=== PATIENT | male | born 1935 | race African-American/Black ===

== ENCOUNTER 2020-01-09 09:21 | Inpatient (IN) | payer MEDICARE, MEDICAID ==
[~2020-01-09] VITALS: Ht 182.9 cm; Wt 89.0 kg
[2020-01-09] MEDS ORDERED: LEVOFLOXACIN 500MG PREMIX 100 ML IV ONE (09:45)
[2020-01-09] MEDS ORDERED: ACETAMINOPHEN 650MG SUPP PR ONE (09:45)
[2020-01-09] MEDS ORDERED: SODIUM CHLORIDE 0.9% 500 ML IV ONE (09:46)
[2020-01-09 10:01] LABS: BASOPHILS % 0.4 % (0.0-2.0); HEMATOCRIT. 45.7 % (42.0-52.0); HEMOGLOBIN. 14.7 g/dL (14.0-18.0); LYMPHOCYTES % 13.6 % (20.0-50.0); MEAN CORPUSCULAR HEMOGLOBIN 27.5 pg (28.0-32.0); MEAN CORPUSCULAR VOLUME 85.9 fL (80.0-94.0); MEAN PLATELET VOLUME 9.1 fl (7.4-10.4); MONOCYTES % 11.8 % (2.0-8.0); NEUTROPHILS % 74.2 % (40.0-76.0); PLATELET 107 x1000/uL (130-400); RED BLOOD CELL COUNT 5.32 mill/uL (4.7-6.1)
[2020-01-09 10:08] LABS: CLARITY URINE CLEAR (CLEAR); COLOR URINE YELLOW (YELLOW); KETONES URINE NEGATIVE (NEGATIVE); LEUKOCYTE ESTERASE URINE NEGATIVE (NEGATIVE); NITRITE URINE NEGATIVE (NEGATIVE); OCCULT BLOOD URINE NEGATIVE (NEGATIVE); PROTEIN URINE 2+ (NEGATIVE)
[2020-01-09 10:10] LABS: CHLORIDE 107 mEq/L (98-107)
[2020-01-09] MEDS ORDERED: LEVETIRACETAM 500MG PREMIX 100 ML IV ONE (10:15)
[2020-01-09 10:17] LABS: D-DIMER 0.53 mg/L FEU (<0.50); INR 3.5; PROTHROMBIN TIME 36.6 sec (9.6-11.0)
[2020-01-09 10:18] LABS: CREATINE KINASE 146 IU/L (39-308)
[2020-01-09] MEDS ORDERED: ACETAMINOPHEN 325MG TABLET PO PRN (11:30)
[2020-01-09] MEDS ORDERED: LORAZEPAM 2MG/ML CPJ IV PRN (11:30)
[2020-01-09] MEDS ORDERED: IPRATROPIUM/ALBUTEROL 0.5-3(2.5)MG/3ML NEB ORI PRN (11:30)
[2020-01-09] MEDS ORDERED: NITROGLYCERIN 0.4MG TABLET SL SL PRN (11:30)
[2020-01-09] MEDS ORDERED: DOCUSATE SODIUM 100MG CAPSULE PO PRN (11:30)
[2020-01-09] MEDS ORDERED: GUAIFENESIN 200MG/10ML SUGAR FREE UDC PO PRN (11:30)
[2020-01-09] MEDS ORDERED: TRAMADOL 50MG TABLET PO PRN (11:30)
[2020-01-09] MEDS ORDERED: MAGNESIUM/ALUMINUM HYDROXIDE/SIMETHICONE 30ML UDC PO PRN (11:30)
[2020-01-09] MEDS ORDERED: ONDANSETRON HCL 4MG/2ML INJ IV PRN (11:30)
[2020-01-09] MEDS ORDERED: PIPERACILLIN/TAZ 3.375G PREMIX 50 ML IV NR (12:00)
[2020-01-09] MEDS ORDERED: AZITHROMYCIN 500 MG in DEXT 5% WATER 250 ML IV NR (12:00)
[2020-01-09 14:45] VITALS: BP 132/69
[2020-01-09 15:46] VITALS: BP 132/69
[2020-01-09 16:00] VITALS: BP 106/65
[2020-01-09] MEDS ORDERED: VANCOMYCIN 1250MG in DEXTROSE 5% WATER 250ML IV NR (18:00)
[2020-01-09] MEDS ORDERED: GABA-531 PO (18:30)
[2020-01-09] MEDS ORDERED: LEVE750T10 PO (18:41)
[2020-01-09] MEDS ORDERED: LACO50TA2 PO (18:41)
[2020-01-09] MEDS ORDERED: FURO-151 PO (18:41)
[2020-01-09] MEDS ORDERED: CARB300C9 PO (18:41)
[2020-01-09] MEDS ORDERED: WARF2.5T83 PO (18:41)
[2020-01-09] MEDS ORDERED: POTA20LI52 PO (18:41)
[2020-01-09] MEDS ORDERED: METO25TA6 PO (18:42)
[2020-01-09] MEDS ORDERED: ATOR40TA70 PO (18:42)
[2020-01-09] MEDS ORDERED: AMLO10TA80 PO (18:42)
[2020-01-09] MEDS ORDERED: CLON0.1T PO (18:42)
[2020-01-09] MEDS ORDERED: DOXA4TAB3 PO (18:42)
[2020-01-09] MEDS ORDERED: TAMS-11 PO (18:42)
[2020-01-09] MEDS ORDERED: ALLO100T PO (18:42)
[2020-01-09] MEDS ORDERED: DEXT 5%/0.9% NACL 1,000 ML IV SCH (19:45)
[2020-01-09 20:00] VITALS: BP 142/65
[2020-01-09] MEDS ORDERED: ZOLPIDEM TARTRATE 5MG TABLET PO PRN (21:00)
[2020-01-09] MEDS: ASCORBIC ACID 500 MG TABLET PO SCH (21:00)
[2020-01-09] MEDS: FAMOTIDINE 20MG TABLET PO SCH (21:00)
[2020-01-09] MEDS: GUAIFENESIN/DM 600MG/30MG ER TAB 12HR PO SCH (21:00)
[2020-01-09] MEDS: PIPERACILLIN/TAZOBACTAM 3.375 G in DEXT 5% WATER 100 ML IV SCH (21:27)
[2020-01-09] MEDS: FUROSEMIDE 40MG/4ML VIAL IVP SCH (21:28)
[2020-01-09] MEDS: LEVETIRACETAM 500MG PREMIX 100 ML IV SCH (21:28)
[2020-01-10] VITALS: BP 130/70
[2020-01-10 01:30] LABS: CREATINE KINASE MB FRACTION 1.2 ng/mL (0.5-3.6)
[2020-01-10 04:00] VITALS: BP 123/62
[2020-01-10] MEDS: PIPERACILLIN/TAZOBACTAM 3.375 G in DEXT 5% WATER 100 ML IV SCH ×3 (04:00→22:17)
[2020-01-10 08:00] VITALS: BP 143/73
[2020-01-10] MEDS ORDERED: AZITHROMYCIN 500 MG in DEXT 5% WATER 250 ML IV SCH (09:00)
[2020-01-10] MEDS: ASPIRIN 325MG EC TABLET PO SCH (09:00)
[2020-01-10] MEDS: ASCORBIC ACID 500 MG TABLET PO SCH ×2 (09:00→21:00)
[2020-01-10] MEDS: GUAIFENESIN/DM 600MG/30MG ER TAB 12HR PO SCH ×2 (09:00→21:00)
[2020-01-10] MEDS: ZINC SULFATE 220 MG ( 50 ) CAPSULE PO SCH (09:00)
[2020-01-10] MEDS: LEVETIRACETAM 500MG PREMIX 100 ML IV SCH ×2 (09:27→21:37)
[2020-01-10] MEDS: FUROSEMIDE 40MG/4ML VIAL IVP SCH ×2 (09:41→21:37)
[2020-01-10] MEDS: AZITHROMYCIN 250 MG in DEXT 5% WATER 250 ML IV SCH (10:20)
[2020-01-10 12:00] VITALS: BP 136/78
[2020-01-10 16:00] VITALS: BP 134/65
[2020-01-10 20:00] VITALS: BP 149/76
[2020-01-10] MEDS: FAMOTIDINE 20MG TABLET PO SCH (21:00)
[2020-01-10] MEDS ORDERED: ACETAMINOPHEN 650MG SUPP PR PRN (21:30)
[2020-01-10] MEDS: DEXT 5%/LACTATED RINGERS 1,000 ML IV SCH (22:22)
[2020-01-11] VITALS: BP 142/64
[2020-01-11] MEDS: ACETAMINOPHEN 325MG TABLET PO PRN (00:48)
[2020-01-11 04:00] VITALS: BP 138/72
[2020-01-11] MEDS: PIPERACILLIN/TAZOBACTAM 3.375 G in DEXT 5% WATER 100 ML IV SCH ×3 (05:26→21:15)
[2020-01-11 08:00] VITALS: BP 101/64
[2020-01-11] MEDS: FUROSEMIDE 40MG/4ML VIAL IVP SCH ×2 (08:53→20:02)
[2020-01-11] MEDS: ASCORBIC ACID 500 MG TABLET PO SCH ×2 (08:53→20:03)
[2020-01-11] MEDS: ZINC SULFATE 220 MG ( 50 ) CAPSULE PO SCH (08:54)
[2020-01-11] MEDS: ASPIRIN 325MG EC TABLET PO SCH (08:54)
[2020-01-11] MEDS: GUAIFENESIN/DM 600MG/30MG ER TAB 12HR PO SCH ×2 (08:54→20:03)
[2020-01-11] MEDS: LEVETIRACETAM 500MG PREMIX 100 ML IV SCH ×2 (08:54→20:02)
[2020-01-11] MEDS: AZITHROMYCIN 250 MG in DEXT 5% WATER 250 ML IV SCH (10:03)
[2020-01-11 10:37] LABS: HEMATOCRIT. 40.4 % (42.0-52.0); HEMOGLOBIN. 13.4 g/dL (14.0-18.0); MEAN CORPUSCULAR HEMOGLOBIN 28.2 pg (28.0-32.0); MEAN CORPUSCULAR VOLUME 85.2 fL (80.0-94.0); MEAN PLATELET VOLUME 10.5 fl (7.4-10.4); PLATELET 103 x1000/uL (130-400); RED BLOOD CELL COUNT 4.74 mill/uL (4.7-6.1); RED CELL DISTRIBUTION WIDTH 13.7 % (11.6-14.6)
[2020-01-11 10:38] LABS: CHLORIDE 111 mEq/L (98-107)
[2020-01-11 10:45] LABS: PHOSPHORUS 3.7 mg/dL (2.5-4.9)
[2020-01-11] MEDS: DEXT 5%/LACTATED RINGERS 1,000 ML IV SCH (11:13)
[2020-01-11] MEDS: DEXT 5%/0.45% NACL 1000ML 1,000 ML IV SCH (11:58)
[2020-01-11 12:30] VITALS: BP 129/65
[2020-01-11] MEDS ORDERED: SODIUM POLYSTYRENE SULFONATE 15 G/60 ML BOT PO NR (13:00)
[2020-01-11] MEDS ORDERED: VANCOMYCIN 1250MG in DEXTROSE 5% WATER 250ML IV SCH (13:00)
[2020-01-11 14:08] LABS: PLATELET ESTIMATE DECREASED
[2020-01-11 16:00] VITALS: BP 124/69
[2020-01-11 20:00] VITALS: BP 127/75
[2020-01-11] MEDS: FAMOTIDINE 20MG TABLET PO SCH (20:03)
[2020-01-12] VITALS: BP 130/68
[2020-01-12] MEDS: DEXT 5%/0.45% NACL 1000ML 1,000 ML IV SCH ×2 (00:24→13:22)
[2020-01-12 04:00] VITALS: BP 121/69
[2020-01-12] MEDS: PIPERACILLIN/TAZOBACTAM 3.375 G in DEXT 5% WATER 100 ML IV SCH ×3 (05:18→22:21)
[2020-01-12 08:00] VITALS: BP 154/67
[2020-01-12] MEDS: ZINC SULFATE 220 MG ( 50 ) CAPSULE PO SCH (08:58)
[2020-01-12] MEDS: ASCORBIC ACID 500 MG TABLET PO SCH ×2 (08:58→20:57)
[2020-01-12] MEDS: ASPIRIN 325MG EC TABLET PO SCH (08:58)
[2020-01-12] MEDS: FUROSEMIDE 40MG/4ML VIAL IVP SCH ×2 (08:58→20:54)
[2020-01-12] MEDS: GUAIFENESIN/DM 600MG/30MG ER TAB 12HR PO SCH ×2 (08:58→20:56)
[2020-01-12] MEDS: LEVETIRACETAM 500MG PREMIX 100 ML IV SCH ×2 (08:59→20:54)
[2020-01-12] MEDS: AZITHROMYCIN 250 MG in DEXT 5% WATER 250 ML IV SCH (09:00)
[2020-01-12 12:00] VITALS: BP 120/61
[2020-01-12 13:45] LABS: CHLORIDE 110 mEq/L (98-107)
[2020-01-12 16:00] VITALS: BP 140/68
[2020-01-12] MEDS ORDERED: POTASSIUM CHLORIDE INJ 40 MEQ in DEXT 5% WATER 250 ML IV SCH (16:00)
[2020-01-12] MEDS ORDERED: VANCOMYCIN 1250MG in DEXTROSE 5% WATER 250ML IV SCH (16:00)
[2020-01-12 20:00] VITALS: BP 155/72
[2020-01-12] MEDS: FAMOTIDINE 20MG TABLET PO SCH (20:57)
[2020-01-13] VITALS: BP 142/69
[2020-01-13] MEDS: DEXT 5%/0.45% NACL 1000ML 1,000 ML IV SCH ×2 (03:08→18:06)
[2020-01-13 04:00] VITALS: BP 132/67
[2020-01-13] MEDS: PIPERACILLIN/TAZOBACTAM 3.375 G in DEXT 5% WATER 100 ML IV SCH ×3 (05:40→22:04)
[2020-01-13] MEDS: CLONIDINE 0.1MG TABLET PO PRN (05:41)
[2020-01-13 08:00] VITALS: BP 148/64
[2020-01-13] MEDS: LEVETIRACETAM 500MG PREMIX 100 ML IV SCH ×2 (10:04→22:03)
[2020-01-13] MEDS: ASPIRIN 325MG EC TABLET PO SCH (10:05)
[2020-01-13] MEDS: ZINC SULFATE 220 MG ( 50 ) CAPSULE PO SCH (10:05)
[2020-01-13] MEDS: ASCORBIC ACID 500 MG TABLET PO SCH ×2 (10:05→22:04)
[2020-01-13] MEDS: AZITHROMYCIN 250 MG in DEXT 5% WATER 250 ML IV SCH (10:05)
[2020-01-13] MEDS: FUROSEMIDE 40MG/4ML VIAL IVP SCH ×2 (10:06→22:04)
[2020-01-13] MEDS: GUAIFENESIN/DM 600MG/30MG ER TAB 12HR PO SCH ×2 (10:10→22:04)
[2020-01-13] MEDS ORDERED: POTASSIUM CHLORIDE INJ 40 MEQ in DEXT 5% WATER 250 ML IV ONE (11:15)
[2020-01-13] MEDS ORDERED: POTASSIUM CHLORIDE 20MEQ TABLET SR PO ONE (11:15)
[2020-01-13 15:21] LABS: BASOPHILS % 0.7 % (0.0-2.0); EOSINOPHILS % 0.8 % (0.0-5.0); HEMATOCRIT. 37.6 % (42.0-52.0); HEMOGLOBIN. 12.2 g/dL (14.0-18.0); LYMPHOCYTES % 35.8 % (20.0-50.0); MEAN CORPUSCULAR HEMOGLOBIN 27.5 pg (28.0-32.0); MONOCYTES % 14.8 % (2.0-8.0); NEUTROPHILS % 47.9 % (40.0-76.0); PLATELET 123 x1000/uL (130-400); RED BLOOD CELL COUNT 4.42 mill/uL (4.7-6.1); RED CELL DISTRIBUTION WIDTH 13.7 % (11.6-14.6)
[2020-01-13 16:00] VITALS: BP 157/89
[2020-01-13] MEDS ORDERED: POTASSIUM CHLORIDE 20MEQ TABLET SR PO NR (17:00)
[2020-01-13] MEDS ORDERED: POTASSIUM CHLORIDE INJ 40 MEQ in DEXT 5% WATER 250 ML IV SCH (18:30)
[2020-01-13 20:00] VITALS: BP 146/74
[2020-01-13] MEDS: FAMOTIDINE 20MG TABLET PO SCH (22:04)
[2020-01-14] VITALS: BP 133/74
[2020-01-14 04:00] VITALS: BP 124/66
[2020-01-14] MEDS: PIPERACILLIN/TAZOBACTAM 3.375 G in DEXT 5% WATER 100 ML IV SCH ×3 (05:41→21:59)
[2020-01-14] MEDS: DEXT 5%/0.45% NACL 1000ML 1,000 ML IV SCH ×2 (05:43→17:44)
[2020-01-14 08:00] VITALS: BP 136/71
[2020-01-14] MEDS: ASPIRIN 325MG EC TABLET PO SCH (08:44)
[2020-01-14] MEDS: LEVETIRACETAM 500MG PREMIX 100 ML IV SCH ×2 (08:44→21:59)
[2020-01-14] MEDS: GUAIFENESIN/DM 600MG/30MG ER TAB 12HR PO SCH ×2 (08:44→21:59)
[2020-01-14] MEDS: ASCORBIC ACID 500 MG TABLET PO SCH ×2 (08:44→21:59)
[2020-01-14] MEDS: ZINC SULFATE 220 MG ( 50 ) CAPSULE PO SCH (08:44)
[2020-01-14] MEDS: FUROSEMIDE 40MG/4ML VIAL IVP SCH ×2 (08:45→21:59)
[2020-01-14 12:00] VITALS: BP 123/75
[2020-01-14 16:00] VITALS: BP 117/81
[2020-01-14 20:00] VITALS: BP 153/69
[2020-01-14] MEDS: FAMOTIDINE 20MG TABLET PO SCH (21:59)
[2020-01-15] VITALS: BP 162/70
[2020-01-15 04:00] VITALS: BP 154/71
[2020-01-15 08:00] VITALS: BP 128/72
[2020-01-15] MEDS: FUROSEMIDE 40MG/4ML VIAL IVP SCH ×2 (08:41→20:41)
[2020-01-15] MEDS: ZINC SULFATE 220 MG ( 50 ) CAPSULE PO SCH (08:41)
[2020-01-15] MEDS: ASPIRIN 325MG EC TABLET PO SCH (08:42)
[2020-01-15] MEDS: DEXT 5%/0.45% NACL 1000ML 1,000 ML IV SCH ×2 (08:42→21:31)
[2020-01-15] MEDS: ASCORBIC ACID 500 MG TABLET PO SCH ×2 (08:42→20:42)
[2020-01-15] MEDS: GUAIFENESIN/DM 600MG/30MG ER TAB 12HR PO SCH ×2 (08:42→20:42)
[2020-01-15] MEDS: LEVETIRACETAM 500MG PREMIX 100 ML IV SCH ×2 (09:11→20:41)
[2020-01-15 12:00] VITALS: BP 116/67
[2020-01-15 16:00] VITALS: BP 131/80
[2020-01-15 20:00] VITALS: BP 147/76
[2020-01-15] MEDS: FAMOTIDINE 20MG TABLET PO SCH (20:42)
[2020-01-16] VITALS: BP 128/96
[2020-01-16 04:00] VITALS: BP 137/65
[2020-01-16 08:00] VITALS: BP 130/96
[2020-01-16] MEDS: ASCORBIC ACID 500 MG TABLET PO SCH ×2 (10:14→21:14)
[2020-01-16] MEDS: ASPIRIN 325MG EC TABLET PO SCH (10:14)
[2020-01-16] MEDS: GUAIFENESIN/DM 600MG/30MG ER TAB 12HR PO SCH ×2 (10:14→21:14)
[2020-01-16] MEDS: FUROSEMIDE 40MG/4ML VIAL IVP SCH ×2 (10:14→21:14)
[2020-01-16] MEDS: ZINC SULFATE 220 MG ( 50 ) CAPSULE PO SCH (10:30)
[2020-01-16] MEDS: LEVETIRACETAM 500MG PREMIX 100 ML IV SCH ×2 (10:30→21:14)
[2020-01-16] MEDS: DEXT 5%/0.45% NACL 1000ML 1,000 ML IV SCH (11:42)
[2020-01-16 12:00] VITALS: BP 138/64
[2020-01-16 16:00] VITALS: BP 168/75
[2020-01-16] MEDS: PIPERACILLIN/TAZOBACTAM 3.375 G in DEXT 5% WATER 100 ML IV SCH ×2 (18:24→22:14)
[2020-01-16 20:00] VITALS: BP 142/72
[2020-01-16] MEDS: FAMOTIDINE 20MG TABLET PO SCH (21:14)
[2020-01-17] VITALS: BP 161/73
[2020-01-17] MEDS: ACETAMINOPHEN 325MG TABLET PO PRN (00:38)
[2020-01-17] MEDS: CLONIDINE 0.1MG TABLET PO PRN (00:38)
[2020-01-17] MEDS: PIPERACILLIN/TAZOBACTAM 3.375 G in DEXT 5% WATER 100 ML IV SCH ×4 (03:26→22:14)
[2020-01-17 04:00] VITALS: BP 141/68
[2020-01-17 08:00] VITALS: BP 133/76
[2020-01-17] MEDS: ZINC SULFATE 220 MG ( 50 ) CAPSULE PO SCH (09:56)
[2020-01-17] MEDS: GUAIFENESIN/DM 600MG/30MG ER TAB 12HR PO SCH ×2 (09:56→21:28)
[2020-01-17] MEDS: FUROSEMIDE 40MG/4ML VIAL IVP SCH ×2 (09:56→21:28)
[2020-01-17] MEDS: ASCORBIC ACID 500 MG TABLET PO SCH ×2 (09:57→21:28)
[2020-01-17] MEDS: ASPIRIN 325MG EC TABLET PO SCH (09:57)
[2020-01-17] MEDS: LEVETIRACETAM 500MG PREMIX 100 ML IV SCH ×2 (09:58→21:28)
[2020-01-17 11:55] LABS: CHLORIDE 108 mEq/L (98-107)
[2020-01-17 11:56] LABS: INR 1.1; PROTHROMBIN TIME 12.3 sec (9.6-11.0)
[2020-01-17 12:00] VITALS: BP 118/67
[2020-01-17 12:08] LABS: BASOPHILS % 0.9 % (0.0-2.0); EOSINOPHILS % 2.3 % (0.0-5.0); HEMATOCRIT. 36.6 % (42.0-52.0); HEMOGLOBIN. 11.8 g/dL (14.0-18.0); LYMPHOCYTES % 23.8 % (20.0-50.0); MEAN CORPUSCULAR HEMOGLOBIN 27.2 pg (28.0-32.0); MEAN PLATELET VOLUME 9.5 fl (7.4-10.4); MONOCYTES % 14.3 % (2.0-8.0); NEUTROPHILS % 58.7 % (40.0-76.0); PLATELET 197 x1000/uL (130-400); RED BLOOD CELL COUNT 4.36 mill/uL (4.7-6.1); RED CELL DISTRIBUTION WIDTH 13.6 % (11.6-14.6)
[2020-01-17 16:00] VITALS: BP 143/78
[2020-01-17 20:00] VITALS: BP 146/71
[2020-01-17] MEDS ORDERED: POTASSIUM CHLORIDE 20MEQ/PACKET PO NR (21:12)
[2020-01-17] MEDS: FAMOTIDINE 20MG TABLET PO SCH (21:28)
[2020-01-17] MEDS ORDERED: KCL 20MEQ/100ML PREMIX 100 ML IV NR (22:30)
[2020-01-18 00:46] VITALS: BP 119/76
[2020-01-18] MEDS: PIPERACILLIN/TAZOBACTAM 3.375 G in DEXT 5% WATER 100 ML IV SCH ×3 (04:08→17:21)
[2020-01-18] MEDS: CLONIDINE 0.1MG TABLET PO PRN (04:12)
[2020-01-18 04:50] VITALS: BP 160/76
[2020-01-18 08:00] VITALS: BP 131/64
[2020-01-18] MEDS: LEVETIRACETAM 500MG PREMIX 100 ML IV SCH ×2 (09:52→22:26)
[2020-01-18] MEDS: ZINC SULFATE 220 MG ( 50 ) CAPSULE PO SCH (09:52)
[2020-01-18] MEDS: FUROSEMIDE 40MG/4ML VIAL IVP SCH ×2 (09:52→22:26)
[2020-01-18] MEDS: POTASSIUM CHLORIDE 20MEQ/PACKET PO SCH (09:52)
[2020-01-18] MEDS: GUAIFENESIN/DM 600MG/30MG ER TAB 12HR PO SCH ×2 (09:53→22:26)
[2020-01-18] MEDS: ASCORBIC ACID 500 MG TABLET PO SCH ×2 (09:53→22:26)
[2020-01-18] MEDS: ASPIRIN 325MG EC TABLET PO SCH (09:53)
[2020-01-18 12:00] VITALS: BP 108/57
[2020-01-18 16:00] VITALS: BP 147/77
[2020-01-18 20:00] VITALS: BP 136/84
[2020-01-18] MEDS: FAMOTIDINE 20MG TABLET PO SCH (22:26)
[2020-01-19] VITALS: BP 134/76
[2020-01-19] MEDS: PIPERACILLIN/TAZOBACTAM 3.375 G in DEXT 5% WATER 100 ML IV SCH ×5 (00:05→21:07)
[2020-01-19 04:00] VITALS: BP 102/67
[2020-01-19 08:00] VITALS: BP 118/65
[2020-01-19] MEDS: ASCORBIC ACID 500 MG TABLET PO SCH ×2 (08:47→21:09)
[2020-01-19] MEDS: FUROSEMIDE 40MG/4ML VIAL IVP SCH ×2 (08:47→21:09)
[2020-01-19] MEDS: LEVETIRACETAM 500MG PREMIX 100 ML IV SCH ×2 (08:47→21:07)
[2020-01-19] MEDS: ZINC SULFATE 220 MG ( 50 ) CAPSULE PO SCH (08:47)
[2020-01-19] MEDS: GUAIFENESIN/DM 600MG/30MG ER TAB 12HR PO SCH ×2 (08:47→21:09)
[2020-01-19] MEDS: POTASSIUM CHLORIDE 20MEQ/PACKET PO SCH (08:47)
[2020-01-19] MEDS: ASPIRIN 325MG EC TABLET PO SCH (08:49)
[2020-01-19 12:20] VITALS: BP 126/66
[2020-01-19 16:03] VITALS: BP 120/68
[2020-01-19 20:00] VITALS: BP 127/67
[2020-01-19] MEDS: FAMOTIDINE 20MG TABLET PO SCH (21:09)
[2020-01-20] VITALS: BP 98/66
[2020-01-20 04:00] VITALS: BP 128/78
[2020-01-20] MEDS: PIPERACILLIN/TAZOBACTAM 3.375 G in DEXT 5% WATER 100 ML IV SCH ×2 (04:31→12:29)
[2020-01-20 08:00] VITALS: BP 142/82
[2020-01-20] MEDS: ZINC SULFATE 220 MG ( 50 ) CAPSULE PO SCH (09:09)
[2020-01-20] MEDS: GUAIFENESIN/DM 600MG/30MG ER TAB 12HR PO SCH (09:09)
[2020-01-20] MEDS: ASPIRIN 325MG EC TABLET PO SCH (09:09)
[2020-01-20] MEDS: LEVETIRACETAM 500MG PREMIX 100 ML IV SCH (09:09)
[2020-01-20] MEDS: ASCORBIC ACID 500 MG TABLET PO SCH (09:09)
[2020-01-20] MEDS: FUROSEMIDE 40MG/4ML VIAL IVP SCH (09:09)
[2020-01-20] MEDS: POTASSIUM CHLORIDE 20MEQ/PACKET PO SCH (09:09)
[2020-01-20 12:00] VITALS: BP 129/69
[2020-01-20 16:00] VITALS: BP 127/67
[2020-01-20 16:16] VITALS: BP 129/69
== END 2020-01-20 19:55 | DRG 871 ==
LOC: ER 10:00 → 7WST 11:13 → EDBEDREQ 11:17 → EDBEDREQTM 11:17 → ENRESERV 12:11 → 7WST 01-11 07:46
PROVIDERS: ADMIT Internal Medicine; ATTEND Internal Medicine
DX: A41.89 Other specified sepsis (principal); U07.1 COVID-19; J96.01 Acute respiratory failure with hypoxia; N17.0 Acute kidney failure with tubular necrosis; G92 Toxic encephalopathy; J12.89 Other viral pneumonia; E44.1 Mild protein-calorie malnutrition; D68.9 Coagulation defect, unspecified; I50.40 Unspecified combined systolic (congestive) and diastolic (congestive) heart failure; N17.9 Acute kidney failure, unspecified; D69.6 Thrombocytopenia, unspecified; E87.5 Hyperkalemia; R74.0 Nonspecific elevation of levels of transaminase and lactic acid dehydrogenase [LDH]; Z66 Do not resuscitate; F03.90 Unspecified dementia, unspecified severity, without behavioral disturbance, psychotic disturbance, mood disturbance, and anxiety; R47.02 Dysphasia; I25.10 Atherosclerotic heart disease of native coronary artery without angina pectoris; Z86.73 Personal history of transient ischemic attack (TIA), and cerebral infarction without residual deficits; Z79.01 Long term (current) use of anticoagulants; Z68.26 Body mass index [BMI] 26.0-26.9, adult; Z88.8 Allergy status to other drugs, medicaments and biological substances; Z79.899 Other long term (current) drug therapy; Y95 Nosocomial condition; R13.10 Dysphagia, unspecified
CPT/HCPCS: 36415; 71045; 80048; 80053; 80061; 80156; 80202; 81003; 82550; 82553; 82728; 83036; 83605; 83615; 83735; 83880; 84100; 84145; 84484; 85025; 85379; 85384; 86140; 87635; 93005; 99291; J0456; J1940; J1953; J1956; J2543; J3370; J3480; J7040; J7060

== ENCOUNTER 2022-07-15 08:01 | Inpatient (IN) | payer MEDICARE, MEDICAID ==
[~2022-07-15] VITALS: Ht 167.6 cm; Wt 90.7 kg
[~2022-07-15 08:01] MED LIST: ALLO100T PO; AMLO10TA80 PO; ATOR40TA70 PO; CARB300C9 PO; CLON0.1T PO; DOXA4TAB3 PO; FURO-151 PO; GABA-532 PO; LACO50TA2 PO; LEVE750T10 PO; METO25TA6 PO; POTA20LI52 PO; TAMS-11 PO; WARF2.5T83 PO
[2022-07-15] MEDS ORDERED: IOHEXOL-350 100 ML BOTTLE ONE (08:55)
[2022-07-15 09:46] LABS: BASOPHILS % 0.6 % (0.0-2.0); EOSINOPHILS % 1.2 % (0.0-5.0); HEMATOCRIT. 36.4 % (42.0-52.0); HEMOGLOBIN. 11.4 g/dL (14.0-18.0); LYMPHOCYTES % 15.1 % (20.0-50.0); MEAN CORPUSCULAR HEMOGLOBIN 25.7 pg (28.0-32.0); MEAN CORPUSCULAR VOLUME 82.4 fL (80.0-94.0); MEAN PLATELET VOLUME 7.8 fl (7.4-10.4); MONOCYTES % 7.9 % (2.0-8.0); NEUTROPHILS % 75.2 % (40.0-76.0); PLATELET 249 x1000/uL (130-400); RED BLOOD CELL COUNT 4.42 mill/uL (4.7-6.1); RED CELL DISTRIBUTION WIDTH 15.5 % (11.6-14.6)
[2022-07-15 10:00] LABS: CHLORIDE 93 mEq/L (98-107)
[2022-07-15 10:17] LABS: CLARITY URINE CLOUDY (CLEAR); COLOR URINE DARK YELLOW (YELLOW); KETONES URINE TRACE (NEGATIVE); LEUKOCYTE ESTERASE URINE 1+ (NEGATIVE); NITRITE URINE NEGATIVE (NEGATIVE); OCCULT BLOOD URINE TRACE (NEGATIVE); PH URINE 5.5 (4.5-8.0); PROTEIN URINE 4+ (NEGATIVE); SPECIFIC GRAVITY URINE 1.024 (1.005-1.030)
[2022-07-15 10:21] LABS: ETHANOL BLOOD < 10 mg/dL
[2022-07-15] MEDS ORDERED: ASPIRIN 325MG EC TABLET PO ONE (10:45)
[2022-07-15 10:48] LABS: *AMPHETAMINES SCREEN URINE NEGATIVE (NEGATIVE); *BARBITURATES SCREEN URINE NEGATIVE (NEGATIVE); *BENZODIAZEPINES SCREEN URINE NEGATIVE (NEGATIVE); *COCAINE SCREEN URINE NEGATIVE (NEGATIVE); CANNABINOID URINE SCREEN NEGATIVE (NEGATIVE); METHADONE URINE SCREEN NEGATIVE (NEGATIVE); OPIATES URINE SCREEN NEGATIVE (NEGATIVE); PHENCYCLIDINE URINE SCREEN NEGATIVE (NEGATIVE)
[2022-07-15] MEDS ORDERED: ENOXAPARIN 100MG/ML SYR SUBCUT NR (11:00)
[2022-07-15] MEDS ORDERED: ENOXAPARIN 80MG/0.8ML SYR SUBCUT ONE (11:00)
[2022-07-15 14:09] VITALS: BP 136/83
[2022-07-15 16:00] VITALS: BP 128/74
[2022-07-15] MEDS ORDERED: DOCUSATE SODIUM 100MG CAPSULE PO PRN (16:30)
[2022-07-15] MEDS ORDERED: MAGNESIUM/ALUMINUM HYDROXIDE/SIMETHICONE 30ML UDC PO PRN (16:30)
[2022-07-15] MEDS ORDERED: CLONIDINE 0.1MG TABLET PO PRN (16:30)
[2022-07-15] MEDS ORDERED: ACETAMINOPHEN 325MG TABLET PO PRN (16:30)
[2022-07-15] MEDS ORDERED: ONDANSETRON HCL 4MG/2ML INJ IV PRN (16:30)
[2022-07-15] MEDS ORDERED: HYDROCODONE/ACETAMINOPHEN 5/325MG TABLET PO PRN (16:42)
[2022-07-15] MEDS: GABAPENTIN 300MG CAPSULE PO SCH ×2 (17:35→17:44)
[2022-07-15 20:00] VITALS: BP 111/84
[2022-07-15] MEDS ORDERED: NALOXONE HCL 0.4MG/ML VIAL IV PRN (20:15)
[2022-07-15 20:35] LABS: INR 1.2; PROTHROMBIN TIME 12.4 sec (9.6-11.0)
[2022-07-15] MEDS: CARBAMAZEPINE 200MG TABLET PO SCH (21:18)
[2022-07-15] MEDS: LEVETIRACETAM 500MG TABLET PO SCH (21:18)
[2022-07-15] MEDS: ATORVASTATIN CALCIUM 40MG TABLET PO SCH (21:18)
[2022-07-16] VITALS (13 sets, daily range): BP systolic 79–155; BP diastolic 42–69
[2022-07-16] MEDS: METOPROLOL TARTRATE 25MG TABLET PO SCH ×3 (01:28→21:00)
[2022-07-16 07:33] LABS: INR 1.1
[2022-07-16 07:44] LABS: BASOPHILS % 1.1 % (0.0-2.0); EOSINOPHILS % 4.9 % (0.0-5.0); HEMATOCRIT. 30.8 % (42.0-52.0); HEMOGLOBIN. 9.9 g/dL (14.0-18.0); LYMPHOCYTES % 22.1 % (20.0-50.0); MEAN CORPUSCULAR HEMOGLOBIN 26.2 pg (28.0-32.0); MEAN CORPUSCULAR VOLUME 81.7 fL (80.0-94.0); MEAN PLATELET VOLUME 8.1 fl (7.4-10.4); MONOCYTES % 10.6 % (2.0-8.0); NEUTROPHILS % 61.3 % (40.0-76.0); PLATELET 227 x1000/uL (130-400); RED BLOOD CELL COUNT 3.77 mill/uL (4.7-6.1); RED CELL DISTRIBUTION WIDTH 15.4 % (11.6-14.6)
[2022-07-16 08:07] LABS: CHLORIDE 95 mEq/L (98-107)
[2022-07-16 08:26] LABS: HDL CHOLESTEROL 43 mg/dL (40-59); LDL CHOLESTEROL 131 mg/dL (5-100); PHOSPHORUS 4.5 mg/dL (2.5-4.9)
[2022-07-16] MEDS: OMEPRAZOLE 20MG CAPSULE EXTENDED RELEASE PO SCH (08:53)
[2022-07-16] MEDS: TAMSULOSIN HCL 0.4MG SR CAPSULE PO SCH (08:54)
[2022-07-16] MEDS: LEVETIRACETAM 500MG TABLET PO SCH ×2 (08:54→23:32)
[2022-07-16] MEDS: DOXAZOSIN MESYLATE 4MG TABLET PO SCH (08:55)
[2022-07-16] MEDS: CARBAMAZEPINE 200MG TABLET PO SCH ×2 (08:55→23:33)
[2022-07-16] MEDS: ALLOPURINOL 100 MG TABLET PO SCH (08:55)
[2022-07-16] MEDS: AMLODIPINE 10MG TABLET PO SCH (08:56)
[2022-07-16] MEDS: ASPIRIN 325MG EC TABLET PO SCH (08:56)
[2022-07-16] MEDS: GABAPENTIN 300MG CAPSULE PO SCH ×2 (08:56→16:47)
[2022-07-16] MEDS ORDERED: APIX2.5T PO (13:34)
[2022-07-16 14:53] LABS: HEPATITIS B SURFACE ANTIGEN NEGATIVE
[2022-07-16] MEDS: APIXABAN 2.5 MG TABLET PO SCH (16:47)
[2022-07-16] MEDS: ATORVASTATIN CALCIUM 40MG TABLET PO SCH (23:32)
[2022-07-17] VITALS: BP 134/65
[2022-07-17 04:00] VITALS: BP 132/51
[2022-07-17] MEDS: OMEPRAZOLE 20MG CAPSULE EXTENDED RELEASE PO SCH (06:02)
[2022-07-17 06:56] LABS: INR 1.1; PROTHROMBIN TIME 11.7 sec (9.6-11.0)
[2022-07-17 07:02] LABS: BASOPHILS % 0.9 % (0.0-2.0); EOSINOPHILS % 1.3 % (0.0-5.0); HEMATOCRIT. 36.2 % (42.0-52.0); HEMOGLOBIN. 11.3 g/dL (14.0-18.0); LYMPHOCYTES % 19.8 % (20.0-50.0); MEAN CORPUSCULAR VOLUME 83.2 fL (80.0-94.0); MEAN PLATELET VOLUME 8.9 fl (7.4-10.4); MONOCYTES % 8.1 % (2.0-8.0); NEUTROPHILS % 69.9 % (40.0-76.0); PLATELET 249 x1000/uL (130-400); RED BLOOD CELL COUNT 4.34 mill/uL (4.7-6.1); RED CELL DISTRIBUTION WIDTH 15.6 % (11.6-14.6)
[2022-07-17 08:00] VITALS: BP 128/61
[2022-07-17] MEDS: LEVETIRACETAM 500MG TABLET PO SCH ×2 (08:48→21:06)
[2022-07-17] MEDS: TAMSULOSIN HCL 0.4MG SR CAPSULE PO SCH (08:48)
[2022-07-17] MEDS: ALLOPURINOL 100 MG TABLET PO SCH (08:48)
[2022-07-17] MEDS: CARBAMAZEPINE 200MG TABLET PO SCH ×2 (08:48→21:05)
[2022-07-17] MEDS: APIXABAN 2.5 MG TABLET PO SCH ×2 (08:48→16:43)
[2022-07-17] MEDS: ASPIRIN 325MG EC TABLET PO SCH (08:48)
[2022-07-17] MEDS: AMLODIPINE 10MG TABLET PO SCH (08:48)
[2022-07-17] MEDS: METOPROLOL TARTRATE 25MG TABLET PO SCH ×2 (08:52→21:06)
[2022-07-17] MEDS: GABAPENTIN 300MG CAPSULE PO SCH (08:52)
[2022-07-17] MEDS: DOXAZOSIN MESYLATE 4MG TABLET PO SCH (08:52)
[2022-07-17] MEDS: GABAPENTIN 100MG CAPSULE PO SCH ×2 (09:30→16:43)
[2022-07-17 12:00] VITALS: BP 130/83
[2022-07-17 16:00] VITALS: BP 117/57
[2022-07-17 20:00] VITALS: BP 129/61
[2022-07-17] MEDS: ATORVASTATIN CALCIUM 40MG TABLET PO SCH (21:05)
[2022-07-18] VITALS (18 sets, daily range): BP systolic 94–144; BP diastolic 44–103
[2022-07-18] MEDS ORDERED: FAMOTIDINE 20MG TABLET PO SCH (06:40)
[2022-07-18 06:43] LABS: HEMATOCRIT. 37.7 % (42.0-52.0); HEMOGLOBIN. 11.4 g/dL (14.0-18.0); LYMPHOCYTES % 26.6 % (20.0-50.0); MEAN CORPUSCULAR HEMOGLOBIN 25.7 pg (28.0-32.0); MEAN CORPUSCULAR VOLUME 85.1 fL (80.0-94.0); MEAN PLATELET VOLUME 8.7 fl (7.4-10.4); NEUTROPHILS % 59.4 % (40.0-76.0); PLATELET 208 x1000/uL (130-400); RED BLOOD CELL COUNT 4.43 mill/uL (4.7-6.1); RED CELL DISTRIBUTION WIDTH 15.8 % (11.6-14.6)
[2022-07-18] MEDS: ASPIRIN 325MG EC TABLET PO SCH (08:46)
[2022-07-18] MEDS: ALLOPURINOL 100 MG TABLET PO SCH (08:46)
[2022-07-18] MEDS: TAMSULOSIN HCL 0.4MG SR CAPSULE PO SCH (08:48)
[2022-07-18] MEDS: APIXABAN 2.5 MG TABLET PO SCH (08:48)
[2022-07-18] MEDS: METOPROLOL TARTRATE 25MG TABLET PO SCH (08:48)
[2022-07-18] MEDS: LEVETIRACETAM 500MG TABLET PO SCH (08:49)
[2022-07-18] MEDS: GABAPENTIN 100MG CAPSULE PO SCH (08:55)
[2022-07-18] MEDS: CARBAMAZEPINE 200MG TABLET PO SCH (08:55)
[2022-07-18] MEDS ORDERED: FOLIC ACID/VITAMIN B COMP W-C TABLET PO SCH (09:00)
[2022-07-18] MEDS ORDERED: POLYETHYLENE GLYCOL 3350 (17GM) 1 DOSE PACK PO SCH (09:00)
[2022-07-18] MEDS ORDERED: AMLODIPINE 5MG TABLET PO SCH (09:00)
[2022-07-18 10:39] LABS: PHOSPHORUS 4.3 mg/dL (2.5-4.9)
== END 2022-07-18 18:00 | DRG 70 ==
LOC: ER 08:05 → 7EST 12:30 → ENRESERV 12:49 → 7EST 15:19
PROVIDERS: ADMIT Internal Medicine; ATTEND Internal Medicine
DX: G93.41 Metabolic encephalopathy (principal); N18.6 End stage renal disease; E87.1 Hypo-osmolality and hyponatremia; I13.2 Hypertensive heart and chronic kidney disease with heart failure and with stage 5 chronic kidney disease, or end stage renal disease; I42.9 Cardiomyopathy, unspecified; G45.9 Transient cerebral ischemic attack, unspecified; E11.22 Type 2 diabetes mellitus with diabetic chronic kidney disease; E78.5 Hyperlipidemia, unspecified; I50.9 Heart failure, unspecified; I48.91 Unspecified atrial fibrillation; N40.0 Benign prostatic hyperplasia without lower urinary tract symptoms; G40.909 Epilepsy, unspecified, not intractable, without status epilepticus; J44.9 Chronic obstructive pulmonary disease, unspecified; I25.10 Atherosclerotic heart disease of native coronary artery without angina pectoris; D63.1 Anemia in chronic kidney disease; G30.9 Alzheimer's disease, unspecified; F02.80 Dementia in other diseases classified elsewhere, unspecified severity, without behavioral disturbance, psychotic disturbance, mood disturbance, and anxiety; G93.89 Other specified disorders of brain; Z66 Do not resuscitate; Z79.01 Long term (current) use of anticoagulants; Z88.3 Allergy status to other anti-infective agents; Z88.8 Allergy status to other drugs, medicaments and biological substances; Z93.0 Tracheostomy status; Z82.49 Family history of ischemic heart disease and other diseases of the circulatory system; Z79.899 Other long term (current) drug therapy; Z86.16 Personal history of COVID-19; Z87.820 Personal history of traumatic brain injury; Z95.0 Presence of cardiac pacemaker; Z87.891 Personal history of nicotine dependence; Z99.2 Dependence on renal dialysis; Z87.01 Personal history of pneumonia (recurrent)
CPT/HCPCS: 36415; 70496; 70498; 71045; 76700; 80048; 80053; 80061; 80076; 80305; 80320; 81003; 82962; 83735; 83880; 84100; 84439; 84443; 84484; 85025; 86705; 86709; 86803; 87340; 90935; 93005; 93306; 93880; 93970; 97162; 99291; J1650; Q9967; G0480

== ENCOUNTER 2022-07-20 09:17 | Inpatient (IN) | payer MEDICARE, MEDICAID ==
[~2022-07-20] VITALS: Ht 190.5 cm; Wt 91.6 kg
[~2022-07-20 09:17] MED LIST changes: +APIX2.5T PO; -WARF2.5T83 PO
[2022-07-20 10:38] LABS: BASOPHILS % 0.8 % (0.0-2.0); EOSINOPHILS % 2.7 % (0.0-5.0); HEMATOCRIT. 35.9 % (42.0-52.0); HEMOGLOBIN. 11.5 g/dL (14.0-18.0); LYMPHOCYTES % 31.5 % (20.0-50.0); MEAN CORPUSCULAR HEMOGLOBIN 26.6 pg (28.0-32.0); MEAN CORPUSCULAR VOLUME 83.1 fL (80.0-94.0); MEAN PLATELET VOLUME 8.1 fl (7.4-10.4); MONOCYTES % 8.1 % (2.0-8.0); NEUTROPHILS % 56.9 % (40.0-76.0); PLATELET 300 x1000/uL (130-400); RED BLOOD CELL COUNT 4.31 mill/uL (4.7-6.1); RED CELL DISTRIBUTION WIDTH 15.8 % (11.6-14.6)
[2022-07-20 10:42] LABS: CHLORIDE 100 mEq/L (98-107)
[2022-07-20] MEDS ORDERED: NITROGLYCERIN 0.4MG TABLET SL SL PRN (15:45)
[2022-07-20] MEDS ORDERED: GUAIFENESIN 200MG/10ML SUGAR FREE UDC PO PRN (15:45)
[2022-07-20] MEDS ORDERED: CLONIDINE 0.1MG TABLET PO PRN (15:45)
[2022-07-20] MEDS ORDERED: IPRATROPIUM/ALBUTEROL 0.5-3(2.5)MG/3ML NEB NEB PRN (15:45)
[2022-07-20] MEDS ORDERED: ACETAMINOPHEN 325MG TABLET PO PRN ×2 (15:45)
[2022-07-20] MEDS ORDERED: MAGNESIUM/ALUMINUM HYDROXIDE/SIMETHICONE 30ML UDC PO PRN (15:45)
[2022-07-20] MEDS ORDERED: ONDANSETRON HCL 4MG/2ML INJ IV PRN (15:45)
[2022-07-20] MEDS ORDERED: DOCUSATE SODIUM 100MG CAPSULE PO PRN (15:45)
[2022-07-20 17:00] LABS: INR 1.1; PROTHROMBIN TIME 11.9 sec (9.6-11.0)
[2022-07-20] MEDS ORDERED: SEVELAMER CARBONATE 800 MG TABLET PO SCH (17:00)
[2022-07-20 18:51] VITALS: BP 134/66
[2022-07-20 20:00] VITALS: BP_SYST 119; BP_SYST 122; BP_DIAS 58; BP_DIAS 71
[2022-07-20] MEDS: LEVETIRACETAM 500MG TABLET PO SCH (22:11)
[2022-07-20] MEDS: FAMOTIDINE 20MG TABLET PO SCH (22:11)
[2022-07-20] MEDS: APIXABAN 2.5 MG TABLET PO SCH (22:11)
[2022-07-21] VITALS (14 sets, daily range): BP systolic 103–159; BP diastolic 55–87
[2022-07-21 03:05] LABS: CREATINE KINASE MB FRACTION 2.7 ng/mL (0.5-3.6)
[2022-07-21] MEDS: APIXABAN 2.5 MG TABLET PO SCH ×2 (06:07→17:43)
[2022-07-21 08:26] LABS: BASOPHILS % 0.9 % (0.0-2.0); EOSINOPHILS % 4.2 % (0.0-5.0); HEMATOCRIT. 32.3 % (42.0-52.0); LYMPHOCYTES % 25.1 % (20.0-50.0); MEAN CORPUSCULAR HEMOGLOBIN 25.8 pg (28.0-32.0); MEAN CORPUSCULAR VOLUME 83.2 fL (80.0-94.0); MEAN PLATELET VOLUME 8.1 fl (7.4-10.4); NEUTROPHILS % 59.8 % (40.0-76.0); PLATELET 269 x1000/uL (130-400); RED BLOOD CELL COUNT 3.89 mill/uL (4.7-6.1); RED CELL DISTRIBUTION WIDTH 15.4 % (11.6-14.6)
[2022-07-21] MEDS: AMLODIPINE 10MG TABLET PO SCH (09:00)
[2022-07-21] MEDS: LEVETIRACETAM 500MG TABLET PO SCH ×2 (09:30→20:29)
[2022-07-21] MEDS: ASPIRIN 81MG EC TABLET PO SCH (09:30)
[2022-07-21 14:19] LABS: CHLORIDE 104 mEq/L (98-107)
[2022-07-21 17:45] LABS: CREATINE KINASE 110 IU/L (39-308); CREATINE KINASE MB FRACTION 2.7 ng/mL (0.5-3.6); PHOSPHORUS 5.8 mg/dL (2.5-4.9)
[2022-07-21] MEDS: FAMOTIDINE 20MG TABLET PO SCH (20:29)
[2022-07-22 00:02] VITALS: BP 118/63
[2022-07-22 04:02] VITALS: BP 116/69
[2022-07-22] MEDS: APIXABAN 2.5 MG TABLET PO SCH ×2 (05:32→17:38)
[2022-07-22 08:00] VITALS: BP 128/66
[2022-07-22] MEDS: AMLODIPINE 10MG TABLET PO SCH (09:05)
[2022-07-22] MEDS: ASPIRIN 81MG EC TABLET PO SCH (09:05)
[2022-07-22] MEDS: LEVETIRACETAM 500MG TABLET PO SCH ×2 (09:05→20:28)
[2022-07-22 12:00] VITALS: BP 111/75
[2022-07-22 16:00] VITALS: BP 110/60
[2022-07-22 20:00] VITALS: BP 117/61
[2022-07-22] MEDS: FAMOTIDINE 20MG TABLET PO SCH (20:28)
[2022-07-23] VITALS: BP 123/60
[2022-07-23 04:00] VITALS: BP 133/66
[2022-07-23] MEDS: APIXABAN 2.5 MG TABLET PO SCH ×2 (05:44→18:47)
[2022-07-23 08:00] VITALS: BP 134/69
[2022-07-23 08:06] LABS: EOSINOPHILS % 5.7 % (0.0-5.0); HEMATOCRIT. 33.8 % (42.0-52.0); HEMOGLOBIN. 10.4 g/dL (14.0-18.0); LYMPHOCYTES % 34.3 % (20.0-50.0); MEAN CORPUSCULAR HEMOGLOBIN 25.8 pg (28.0-32.0); MEAN CORPUSCULAR VOLUME 84.1 fL (80.0-94.0); MEAN PLATELET VOLUME 8.6 fl (7.4-10.4); MONOCYTES % 12.6 % (2.0-8.0); NEUTROPHILS % 46.4 % (40.0-76.0); PLATELET 222 x1000/uL (130-400); RED BLOOD CELL COUNT 4.01 mill/uL (4.7-6.1)
[2022-07-23 09:58] LABS: CHLORIDE 102 mEq/L (98-107)
[2022-07-23 10:10] LABS: PHOSPHORUS 5.1 mg/dL (2.5-4.9)
[2022-07-23] MEDS: ASPIRIN 81MG EC TABLET PO SCH (10:30)
[2022-07-23] MEDS: AMLODIPINE 10MG TABLET PO SCH (10:30)
[2022-07-23] MEDS: LEVETIRACETAM 500MG TABLET PO SCH ×2 (10:30→20:12)
[2022-07-23 12:00] VITALS: BP 126/67
[2022-07-23 16:00] VITALS: BP 113/70
[2022-07-23 20:00] VITALS: BP 124/68
[2022-07-23] MEDS: FAMOTIDINE 20MG TABLET PO SCH (20:11)
[2022-07-24] VITALS (13 sets, daily range): BP systolic 105–136; BP diastolic 55–75
[2022-07-24] MEDS: APIXABAN 2.5 MG TABLET PO SCH ×2 (06:24→17:46)
[2022-07-24 06:59] LABS: BASOPHILS % 1.3 % (0.0-2.0); EOSINOPHILS % 5.4 % (0.0-5.0); HEMATOCRIT. 33.5 % (42.0-52.0); HEMOGLOBIN. 10.5 g/dL (14.0-18.0); LYMPHOCYTES % 37.2 % (20.0-50.0); MEAN CORPUSCULAR HEMOGLOBIN 25.9 pg (28.0-32.0); MEAN CORPUSCULAR VOLUME 82.6 fL (80.0-94.0); MEAN PLATELET VOLUME 7.9 fl (7.4-10.4); MONOCYTES % 13.8 % (2.0-8.0); NEUTROPHILS % 42.3 % (40.0-76.0); PLATELET 254 x1000/uL (130-400); RED BLOOD CELL COUNT 4.06 mill/uL (4.7-6.1); RED CELL DISTRIBUTION WIDTH 15.3 % (11.6-14.6)
[2022-07-24] MEDS: LEVETIRACETAM 500MG TABLET PO SCH (08:32)
[2022-07-24] MEDS: ASPIRIN 81MG EC TABLET PO SCH (08:32)
[2022-07-24] MEDS: AMLODIPINE 10MG TABLET PO SCH (08:33)
[2022-07-24 13:39] LABS: PHOSPHORUS 6.1 mg/dL (2.5-4.9)
== END 2022-07-24 20:50 | DRG 91 ==
LOC: ER 09:17 → EDBEDREQSVC 11:34 → EDBEDREQ 11:34 → EDBEDREQTM 11:34 → EDBEDREQ 11:35 → 6WST 13:05 → EDBEDREQTM 13:26 → EDBEDREQ 13:26 → ENRESERV 14:08 → SUPCPDRO 15:36
PROVIDERS: ADMIT Internal Medicine; ATTEND Internal Medicine
PROC: 5A1D70Z Performance of Urinary Filtration, Intermittent, Less than 6 Hours Per Day (ICD-10-PCS; principal; 2022-07-21)
PROC: 5A1D70Z Performance of Urinary Filtration, Intermittent, Less than 6 Hours Per Day (ICD-10-PCS; 2022-07-24)
DX: G92.8 Other toxic encephalopathy (principal); I21.4 Non-ST elevation (NSTEMI) myocardial infarction; I50.33 Acute on chronic diastolic (congestive) heart failure; J96.91 Respiratory failure, unspecified with hypoxia; N18.6 End stage renal disease; I13.2 Hypertensive heart and chronic kidney disease with heart failure and with stage 5 chronic kidney disease, or end stage renal disease; E44.1 Mild protein-calorie malnutrition; I82.513 Chronic embolism and thrombosis of femoral vein, bilateral; D63.8 Anemia in other chronic diseases classified elsewhere; Z20.822 Contact with and (suspected) exposure to COVID-19; I25.10 Atherosclerotic heart disease of native coronary artery without angina pectoris; F02.80 Dementia in other diseases classified elsewhere, unspecified severity, without behavioral disturbance, psychotic disturbance, mood disturbance, and anxiety; E88.09 Other disorders of plasma-protein metabolism, not elsewhere classified; E78.5 Hyperlipidemia, unspecified; G30.9 Alzheimer's disease, unspecified; G62.9 Polyneuropathy, unspecified; K21.9 Gastro-esophageal reflux disease without esophagitis; M10.9 Gout, unspecified; G40.909 Epilepsy, unspecified, not intractable, without status epilepticus; I48.91 Unspecified atrial fibrillation; Z88.8 Allergy status to other drugs, medicaments and biological substances; Z79.01 Long term (current) use of anticoagulants; Z87.01 Personal history of pneumonia (recurrent); Z79.899 Other long term (current) drug therapy; Z86.73 Personal history of transient ischemic attack (TIA), and cerebral infarction without residual deficits; Z99.2 Dependence on renal dialysis; Z91.15 Patient's noncompliance with renal dialysis; Z68.25 Body mass index [BMI] 25.0-25.9, adult; Z95.0 Presence of cardiac pacemaker; Z82.49 Family history of ischemic heart disease and other diseases of the circulatory system; I65.23 Occlusion and stenosis of bilateral carotid arteries
CPT/HCPCS: 36415; 71045; 80048; 80053; 82140; 82550; 82553; 83735; 84100; 84484; 85025; 87426; 90935; 93005; 93970; 99285; C9803

== ENCOUNTER → 2023-05-15 | Outpatient (CLI) | payer MEDICARE, MEDICAID | END | disposition home or self-care (01) | LOC: CT 08:24 | PROVIDERS: ATTEND Podiatrist Foot & Ankle Surgery | DX: M86.172 Other acute osteomyelitis, left ankle and foot (principal) | CPT/HCPCS: 73700 ==